=== PATIENT | female | born 1965 | race American Indian/Alaskan Native ===

== ENCOUNTER 2016-12-23 08:58 | Observation (INO) | payer OTHER ==
--- NOTE | 2016-12-21 13:30 | Anesthesia Consultation ---
Anesthesia Consult and Med Hx Date of service: 12/21/16 - Airway Anesthetic Teeth Evaluation: Poor (broken teeth back right) ROM Head & Neck: Adequate Mental/Hyoid Distance: Adequate Mallampati Class: Class II Intubation Access Assessment: Probably Good - Pulmonary Exam CTA: Yes (clear blbs) - Cardiac Exam Cardiac Exam: RRR - Pre-Operative Health Status ASA Pre-Surgery Classification: ASA2, ASA3 Proposed Anesthetic Plan: General - Cardiovascular System Hx Hypertension: Yes (since 20 yrs old) - Central Nervous System Hx Psychiatric Problems: No - Gastrointestinal Hx Gastroesophageal Reflux Disease: Yes - Hematic Hx Anemia: Yes - Other Systems Hx Alcohol Use: Yes (occas) Hx Cancer: No Hx Obesity: Yes
[2016-12-21 13:33] LABS: Basophils % (Auto) 1.2 % (0.0-1.8); Eosinophils % (Auto) 1.7 % (0.0-4.3); Hematocrit 37.2 % (30.3-42.9); Hemoglobin 12.2 gm/dl (10.1-14.3); Mean Corpuscular HGB Conc 33 % (30-34); Mean Corpuscular Volume 75 fl (79-97); Platelet Count 248 K/mm3 (140-440); Red Blood Count 4.94 M/mm3 (3.65-5.03); Red Cell Distribution Width 13.6 % (13.2-15.2); White Blood Count 6.4 K/mm3 (4.5-11.0)
[2016-12-21 13:45] LABS: Anion Gap 15 mmol/L; BUN/Creatinine Ratio 21.66; Blood Urea Nitrogen 13 mg/dL (7-17); Calcium 9.3 mg/dL (8.4-10.2); Carbon Dioxide 27 mmol/L (22-30); Chloride 104.1 mmol/L (98-107); Glucose 93 mg/dL (65-100); Potassium 3.8 mmol/L (3.6-5.0); Sodium 142 mmol/L (137-145)
[2016-12-21 14:05] LABS: Mean Corpuscular Hemoglobin 25 pg (28-32)
--- NOTE | 2016-12-22 09:20 | Admit Criteria Form ---
Admission Criteria Documentation: AMBULATORY SURGERY EXCEPTION CRITERIA Ambulatory Surgery Exception Criteria ( Place 'X' for any and all applicable criteria): Surgery or procedure performed on ambulatory basis may require inpatient stay for[A] ANY ONE of the following(1)(2)(3)(4)(5)(6)(7)(8)(9): [X] I. A preoperative situation, condition, or finding that warrants inpatient stay as indicated by ANY ONE of the following: [] a) Inpatient care needed because of severity of a disease or condition rather than the surgery (eg, severe cardiac or respiratory disease, severe infection) (15) (16 ) (17) (18) [] b) Emergent procedure (eg, angioplasty for acute ischemia)(19) [] c) Complex surgical approach or situation as indicated by ANY ONE of the following(3): [] i) Open approach needed instead of usual endoscopic, transcatheter, or other less invasive procedure [] ii) Difficult approach because of previous operation [] iii) Airway monitoring required after open neck procedures(20)(21) [] iv) Large mass requiring unusually extensive dissection [] v) Additional complicating feature requiring inpatient care (eg, drain management)(22(23): [X] d) Major surgery in a pt with high anesthetic risk as indicated by ANY ONE of the following (2)(3)(5)(7)(8): [X] i) ASA risk class III or higher (severe systemic disease impairing function) [D] [] ii) Advanced age (eg, older than 85 years)(14)(24) [] iii) Symptomatic heart failure(25) [] iv) Symptomatic asthma or COPD(8)(21) [] v) Morbid obesity with hemodynamic or respiratory problems(20)( 21)(26)(27) [] vi) Obstructive sleep apnea(20)(21) [] vii) Former premature infants who are younger than 60 weeks [] viii) High risk for severe postoperative abnormalities (eg, severe postoperative hypocalcemia after parathyroidectomy for severe hyperparathyroidism)(27)( 28) [] ix) Unstable angina(25) [] e) Drug-related risk requiring inpatient stay as indicated by ANY ONE of the following(5)(10)(14)(32)(33) [] i) Procedure requires discontinuing drugs or other therapy (eg , antiarrhythmic medication, antiseizure medication), which necessitates inpatient observation or treatment.(18)(31) [] ii) Major surgery and high risk drug use as indicated by ANY ONE of the following: [] 1) Active abuse of cocaine or similar drug [] 2) Monoamine oxidase inhibitor use [] 3) Other drug identified as posing risk [] f) Inadequate outpatient care situation as indicated by ANY ONE of the following(5)(10)(14)(32)(33) [] i) Patient lives remote from medical facility and procedure has urgent complication potential, and temporary nearby residence cannot be arranged [] ii) Patient will have postprocedure incapacitation and inadequate assistance at home, or alternative level of care cannot be arranged. [] iii) Patient will have long general anesthesia or procedure side effect resolution time, and competent person to stay with patient on first postoperative night at home or alternative level of care cannot be arranged. []iv) Other inadequate outpatient situation that cannot be handled by other means [] II. A perioperative event, condition, or finding that warrants inpatient stay as indicated by ANY ONE of the following (1)(2)(3): [] a) Inadequate physiologic recovery: cardiovascular, respiratory, or hemodynamic status not normal or near preoperative baseline(18) [] b) Hemodynamic instability [] c) Patient not alert with near normal or baseline mental status [] d) Temperature not normal or as expected and not appropriate for outpatient treatment of condition [] e) Ambulatory or appropriate activity level status not yet achieved post procedure [E](34)(35)(36) [] f) Operative site not appropriate (eg, unexpected or excessive drainage or bleeding) [] g) Postoperative effects not resolved or adequately managed (eg, significant pain or vomiting not appropriate for outpatient or next level of care)(10)(12) [] h) Complicating features requiring inpatient care as indicated by ANY ONE of the following(37): [] i) Severe complications of procedure (eg, bowel injury, airway compromise, vascular injury,severe hemorrhage) [] ii) Extensive (eg, dissection far beyond usual scope of procedure ) or prolonged (eg, 120 minutes beyond usual) surgery needed requiring inpatient postoperative care [] iii) Conversion to an open or complex procedure that requires inpatient care (eg, open vs laparoscopic cholecystectomy, abdominal vs vaginal hysterectomy)(38) [] iv) Comorbid condition or test result identified during or post procedure that requires inpatient care (7) [] v) Malignant hyperthermia(30) [] vi) Other complicating feature requiring inpatient care(22)(23) Inpatient stay may be needed until ALL of the following are present (1)(2)(3)(4) (5)(6)(10)(14)(33)(40): []a) Physiologic recovery: cardiovascular, respiratory, and hemodynamic status normal or near preoperative baseline []b) Hemodynamic stability []c) Patient alert, with near normal or baseline mental status []d) Temperature appropriate: patient afebrile or temperature appropriate for outpt treatment of condition []e) Activity level appropriate: ambulatory or appropriate activity level post procedure []f) Operative site appropriate as indicated by ALL of the following: []i) Site dry or with expected drainage []ii) Any blood noted is as expected for procedure. []g) Postoperative effects resolved or managed as indicated by ALL of the following: []i) Pain management appropriate for outpatient (or next level of) care(10) []ii) Minimal nausea and vomiting: if present, successfully treated with oral medication(12) []iii) Headache, dizziness, or drowsiness (if present) are mild. []h) Voiding status acceptable as indicated by ANY ONE of the following: []i) Voiding spontaneously []ii) No voiding but instructions given for follow-up in 6 to 8 hours []iii) Urinary catheter in place, and instructions given for follow-up []i) Complicating features requiring inpatient care manageable at a lower level of care(37) []j) Comorbid conditions manageable at a lower level of care(37) The original [employer] content created by [employer] has been revised. The portions of the content which have been revised are identified through the use of italic text or in bold, and [email or web address] has neither reviewed nor approved the modified material. All other unmodified content is copyright [employer]. Please see references footnoted in the original [employer] edition 2016 Admission Criteria Met: Yes
[~2016-12-23 08:58] MED LIST: ANCEF/STERILE WATER 2 GM/20 ML 2 GM/20 ML SYRINGE IV SCH; DILAUDID IV PRN; PEPCID PO NR; SUBLIMAZE IV NR; SUBLIMAZE IV PRN; TRANSDERM-SCOP TD NR; VERSED IV NR; ZOFRAN IV PRN
[2016-12-23] MEDS ORDERED: NEURONTIN PO NR (09:00)
[2016-12-23] MEDS ORDERED: PEPCID PO NR (09:00)
[2016-12-23] MEDS ORDERED: VERSED IV NR (09:00)
[2016-12-23] MEDS ORDERED: NACL 0.9% 1000 ML 1,000 ML IV SCH (09:00)
[2016-12-23] MEDS ORDERED: ZOFRAN IV PRN (09:02)
[2016-12-23] MEDS ORDERED: DILAUDID IV PRN (09:02)
[2016-12-23] MEDS ORDERED: XYLOCAINE 1% 20 mL ONE (09:44)
[2016-12-23] MEDS ORDERED: MARCAINE-EPI 0.5%-1:200,000 INFILTRATI ONE (09:45)
[2016-12-23] MEDS ORDERED: DECADRON ONE (09:45)
--- NOTE | 2016-12-23 09:48 | History and Physical Report ---
History of Present Illness Date of examination: 12/23/16 Date of admission: 12/23/2016 Chief complaint: Symptomatic uterine fibroids History of present illness: 51-year-old 002 with a history of symptomatic uterine fibroids. The patient had ultrasound performed that demonstrated evidence of an enlarged uterus approximately 15.7 cm in its longest dimension. It also demonstrated evidence of multiple uterine fibroids. The patient has reported pelvic pressure and pain and has elected to undergo definitive surgical management. Past History Past Medical History: hypertension, high cholesterol, other (uterine fibroids) Past Surgical History: section Social history: single - Obstetrical History : 2 Para: 2 Hx # Term Pregnancies: 2 Number of Pregnancies: 0 Spontaneous Abortions: 0 Induced : 0 Number of Living Children: 2 Medications and Allergies Allergies Allergy/AdvReac Type Severity Reaction Status Date / Time No Known Allergies Allergy Verified 12/21/16 13:42 Home Medications Medication Instructions Recorded Confirmed Last Taken Type Aspirin [Adult Low Dose Aspirin EC] 81 mg PO DAILY 12/18/16 12/21/16 12/21/16 History Ferrous Sulfate [Feosol] 325 mg PO BID 12/18/16 12/23/16 12/21/16 History Hydrochlorothiazide [HCTZ] 25 mg PO QDAY 12/18/16 12/23/16 12/21/16 History Metoprolol [Lopressor TAB] 50 mg PO BID 12/18/16 12/23/16 12/23/16 History Omeprazole [Omeprazole] 40 mg PO DAILY 12/18/16 12/23/16 12/21/16 History Pravastatin Sodium [Pravastatin] 40 mg PO QHS 12/18/16 12/23/16 12/21/16 History Active Meds: Active Medications Celecoxib (Celebrex) 200 mg PO PREOP NR Stop: 12/23/16 23:59 Last Admin: 12/23/16 09:26 Dose: 200 mg Famotidine (Pepcid) 20 mg PO PREOP NR Stop: 12/23/16 23:59 Last Admin: 12/23/16 09:26 Dose: 20 mg Fentanyl (Sublimaze) 50 mcg IV Q5MIN PRN PRN Reason: Pain , Severe (7-10) Stop: 12/24/16 13:32 Fentanyl (Sublimaze) 100 mcg IV ONCE NR Stop: 12/23/16 23:59 Last Admin: 12/23/16 09:28 Dose: 100 mcg Gabapentin (Neurontin) 300 mg PO PREOP NR Stop: 12/23/16 23:59 Last Admin: 12/23/16 09:26 Dose: 300 mg Hydromorphone HCl (Dilaudid) 0.5 mg IV Q10MIN PRN PRN Reason: Pain , Severe (7-10) Stop: 12/23/16 16:00 Cefazolin Sodium (Ancef/Sterile Water 2 Gm/20 Ml) 2 gm in 20 mls @ 80 mls/hr IV PREOP MARYBEL PRN Reason: Protocol Stop: 12/23/16 23:59 Sodium Chloride (Nacl 0.9% 1000 Ml) 1,000 mls @ 75 mls/hr IV DIRECT MARYBEL Last Admin: 12/23/16 09:31 Dose: 75 mls/hr Midazolam HCl (Versed) 2 mg IV PREOP NR Stop: 12/23/16 23:59 Last Admin: 12/23/16 09:26 Dose: 2 mg Ondansetron HCl (Zofran) 4 mg IV ONCE PRN PRN Reason: Nausea And Vomiting Stop: 12/23/16 16:00 Review of Systems Genitourinary: pelvic pain - Vital Signs Vital signs: Vital Signs Temp Pulse Resp BP 97.8 F 60 16 140/88 12/21/16 12:55 12/21/16 12:55 12/21/16 12:55 12/21/16 12:55 Temp Pulse Resp BP Pulse Ox 97.8 F 60 16 140/88 12/21/16 12:55 12/21/16 12:55 12/21/16 12:55 12/21/16 12:55 - Physical Exam Breasts: Positive: deferred Cardiovascular: Regular rate Lungs: Positive: Clear to auscultation Abdomen: Positive: normal appearance, soft Uterus: Positive: enlarged Results Result Diagrams: 12/21/16 13:05 12/21/16 13:05 All other labs normal. Assessment and Plan - Patient Problems (1) Uterine fibroid Current Visit: Yes Status: Acute Qualifiers: Uterine leiomyoma location: U Plan to address problem: Patient is scheduled to undergo robotic hysterectomy and bilateral salpingectomy (2) Pelvic pain Current Visit: Yes Status: Acute
[2016-12-23] MEDS ORDERED: NEOSPORIN GU IR ONE ×2 (09:59→13:38)
[2016-12-23] MEDS ORDERED: ROBINUL ONE (10:00)
[2016-12-23] MEDS ORDERED: NEOSTIGMINE ONE (10:00)
[2016-12-23] MEDS ORDERED: DIPRIVAN 10 MG/ML IV ONE (10:05)
[2016-12-23] MEDS ORDERED: ZEMURON IV ONE ×2 (10:05→12:39)
[2016-12-23] MEDS ORDERED: XYLOCAINE MPF 2% ONE (10:05)
[2016-12-23] MEDS ORDERED: DILAUDID ONE (10:06)
--- NOTE | 2016-12-23 10:23 | Anesthesia Day of Surgery ---
Anesthesia Day of Surgery - Day of Surgery Patient Examined: Yes Patient H&P Reviewed: Yes Patient is NPO: Yes Beta Blockers: Yes
[2016-12-23] MEDS ORDERED: MARCAINE 0.5% 30 ML INFILTRATI ONE (10:25)
[2016-12-23] MEDS ORDERED: ZOFRAN ONE (12:39)
[2016-12-23] MEDS ORDERED: ePHEDrine SULFATE ONE (12:55)
--- NOTE | 2016-12-23 13:20 | Operative Report ---
Operative Report Operative Report: Date of surgery: 12/23/2016 Preoperative diagnoses: Symptomatic uterine fibroids; abnormal uterine bleeding Postoperative diagnoses: Same as above Procedure: Robotic hysterectomy; bilateral salpingectomy Surgeon: Lizz Gerber M.D. Truck Sales Manager: Jaquan Dueñas Anesthesia: Gen. endotracheal anesthesia Estimated blood loss: 25 mL Pathology: Uterus, cervix, tubes; leiomyoma Indication: 51-year-old 1 with a history of symptomatic uterine fibroids who presents for a robotic hysterectomy. Procedure: The patient was taken to the operating room and given general endotracheal anesthesia without complication. She is prepped and draped in a normal sterile fashion. A bivalve speculum was placed in the patient's vagina and a single- tooth tenaculum placed on the anterior lip of the cervix. The uterus was sounded with the uterine sound. A [employer] uterine manipulator was placed in the bivalve speculum was then removed. Attention was then turned to the patient's abdomen where a millimeter supra umbilical skin incision was then made. A Veress needle was placed and peritoneal entry was verified water-filled syringe. Insufflation of the peritoneal cavity was performed with CO2 gas. The 12 mm trocar was then placed under direct visualization. An additional 8 mm trocar was placed on the patient's left and right lateral side just opposite of the supraumbilical trocar. An additional 5 mm right lateral trocar was then placed as the accessory port. The patient was then placed in steep Trendelenburg. The da Suzy robot was then engaged. A fenestrated forcep was placed in arm 2 and a vessel sealer was placed in arm 1. The surgeon then transferred to the surgical console. General survey of the patient's abdomen revealed an enlarged fibroid uterus with normal tubes and ovaries bilaterally. The uterus was consistent with approximately a 16 week . The mesosalpinx was then isolated on the right. The vessel sealer was used to coagulate the mesosalpinx which was then transected. The tube was transected from the ovary. The tubo-ovarian ligament was then coagulated and transected. The round ligament was then coagulated and transected also. The vesicouterine peritoneum was then entered from the patient's right side. The uterine vessels were then coagulated with the vessel sealer. The vessels were then transected . Attention was then turned to the patient's left side where the tubo-ovarian ligament and mesosalpinx were again isolated coagulated and transected. The vesical peritoneum was then entered from the left and joined in the midline. Peritoneum was reflected off of the lower uterine segment. Uterine vessels were then coagulated and then transected. The blood supply to the uterus was adequately contained, a posterior colpotomy was made. The V care ring was visualized. Posterior colpotomy was created with the monopolar scissors. The incision was continued circumferentially until anterior colpotomy was made. The cervix and uterus were amputated from the vaginal cuff. Secondary to the large size of the uterus the uterus had to be incised in order to facilitate delivery through the vagina. An incision was created through the myometrium with the monopolar scissors. The uterus was then removed along with the tubes bilaterally through the vagina and a warm laparotomy sponge was placed and maintain the pneumoperitoneum. The vaginal cuff was then closed in a running fashion with V lock suture. Irrigation of the pelvis was performed. Tisseel was applied to the incision. The supraumbilical 12 mm trocar site was closed with the Neno Hernandez device. The skin was then reapproximated with 4-0 Monocryl. The tissue was sent to pathology which included the cervix and uterus. The patient was then successfully extubated. She was then taken to the recovery room in stable condition. All sponge laps and needle counts were correct x2.
[2016-12-23] MEDS ORDERED: NARCAN 0.4 MG/1 ML IV PRN (13:26)
[2016-12-23] MEDS ORDERED: PERCOCET 5/325 PO PRN (13:27)
[2016-12-23] MEDS ORDERED: TYLENOL PO PRN (13:27)
[2016-12-23] MEDS ORDERED: MOTRIN PO PRN (13:27)
[2016-12-23] MEDS ORDERED: MILK OF MAGNESIA PO PRN (13:27)
[2016-12-23] MEDS ORDERED: MARCAINE 0.5% INFILTRATI ONE (13:37)
[2016-12-23] MEDS ORDERED: NACL 0.9% IR ONE ×2 (13:37→13:38)
[2016-12-23] MEDS ORDERED: MORPHINE PCA 30MG/30ML IV SCH (14:00)
--- NOTE | 2016-12-23 14:55 | Post Anesthesia Evaluation ---
- Post Anesthesia Evaluation Patient Participated: Yes Airway Patent: Yes Stable Respiratory Function: Yes Nausea/Vomiting: No Temp > 96.8F: Yes Pain Manageable: Yes Adequeate Hydration: Yes Anesthesia Complications: No
[2016-12-23] MEDS: TORADOL IV SCH ×2 (15:07→23:37)
[2016-12-23] MEDS: D5LR 1,000 ML IV SCH ×2 (15:12→21:54)
[2016-12-24] MEDS: TORADOL IV SCH (05:22)
[2016-12-24] MEDS: D5LR 1,000 ML IV SCH (05:28)
[2016-12-24 06:56] LABS: Hemoglobin 11.1 gm/dl (10.1-14.3)
--- NOTE | 2016-12-24 08:53 | Progress Note ---
Assessment and Plan - Patient Problems (1) Uterine fibroid Current Visit: Yes Status: Acute Qualifiers: Uterine leiomyoma location: U Plan to address problem: Patient doing well Discharge home once meets discharge criteria (2) Pelvic pain Current Visit: Yes Status: Acute Subjective - Subjective Date of service: 12/24/16 Interval history: The patient tolerated her regular diet this a.m. Her Andrade has just recently been discontinued however she has not voided as of yet. She reports that her pain is manageable. Patient experienced elevated blood pressures postoperatively that was appropriately treated with by mouth antihypertensive Patient reports: appetite normal, pain well controlled Objective - Vital Signs Latest vital signs: Vital Signs Temp Pulse Pulse Resp BP BP Pulse Ox 12/24/16 05:19 20 12/24/16 04:35 98.4 F 62 20 139/66 12/24/16 04:12 20 100 12/24/16 01:51 18 12/24/16 00:15 98.1 F 80 18 117/90 12/24/16 00:02 20 12/23/16 21:40 18 12/23/16 20:19 18 100 12/23/16 19:50 98.4 F 80 18 154/76 12/23/16 15:35 97.6 F 64 18 147/67 12/23/16 15:15 63 12 132/60 100 12/23/16 15:07 13 12/23/16 15:00 97.7 F 61 12 138/52 100 12/23/16 14:45 64 12 138/53 100 12/23/16 14:30 68 14 130/54 100 12/23/16 14:20 57 L 14 125/64 100 12/23/16 14:15 57 L 14 123/62 100 12/23/16 14:10 57 L 14 125/64 100 12/23/16 14:05 97.8 F 55 L 13 128/61 100 12/23/16 10:48 72 18 139/69 100 12/23/16 10:43 74 18 141/72 100 12/23/16 10:38 73 18 137/71 100 12/23/16 10:26 75 20 144/75 99 12/23/16 10:18 76 17 160/79 100 12/23/16 10:07 71 18 155/78 100 12/23/16 10:02 99.1 F 64 18 151/82 100 12/23/16 09:57 61 12 144/73 100 12/23/16 09:52 68 13 144/76 100 12/23/16 09:47 62 21 144/80 100 12/23/16 09:33 99.1 F 59 L 20 153/63 100 Intake and Output 12/23/16 12/24/16 12/24/16 22:59 06:59 14:59 Intake Total 1720 1240 Output Total 990 600 Balance 730 640 Intake: IV 1000 1000 D5lr 1,000 ml @ 125 mls/ 1000 1000 hr IV DIRECT [facility] Rx#: [id number] Oral 480 240 Intake, Free Water 240 Output: Urine 990 600 2-way Urethral 265 Indwelling Catheter 450 600 Other: Total, Intake Amount 240 120 Total, Output Amount 450 300 Voiding Method Indwelling Catheter Indwelling Catheter - Exam Abdomen: Present: normal appearance, soft Incision: Present: normal
--- NOTE | 2016-12-24 08:55 | Discharge Summary ---
Providers - Providers Date of Admission: 12/23/16 13:27 Date of discharge: 12/24/16 Attending physician: NICHOLE MENON Primary care physician: NICOLE PENG Hospitalization Reason for admission: other (symptomatic uterine fibroid; dysfunctional uterine bleeding) Procedure: other (robotic hysterectomy and bilateral salpingectomy) Incision: normal, dry Discharge diagnosis: other (symptomatic uterine fibroids; dysfunctional uterine bleeding.) Hospital course: The patient was admitted the day of surgery underwent a robotic hysterectomy bilateral salpingectomy. Please see operative note for details of surgery. Postoperative course is limited eventful for elevated blood pressures that were controlled with antihypertensives. Condition at discharge: Good Disposition: DISCHARGED TO HOME OR SELFCARE - Discharge Diagnoses (1) Uterine fibroid Status: Acute Qualifiers: Uterine leiomyoma location: U (2) Pelvic pain Status: Acute Plan - Discharge Medications Prescriptions: Docusate Sodium [Colace] 100 mg PO BID PRN #60 capsule PRN Reason: Constipation Ibuprofen [Motrin] 800 mg PO Q8HR PRN #60 tablet PRN Reason: Pain Oxycodone HCl/Acetaminophen [Percocet 7.5/325 mg] 1 each PO Q6HR PRN #45 tablet PRN Reason: Pain - Provider Discharge Summary Activity: no sex for 6 weeks, no heavy lifting 4 weeks, no strenuous exercise Diet: routine Instructions: routine Additional instructions: [] Smoking cessation referral if applicable(refer to patient education folder for contact #) [] Refer to [facility] Booklet Call your doctor immediately for: * Fever > 100.5 * Heavy vaginal bleeding ( >1 pad per hour) * Severe persistent headache * Shortness of breath * Reddened, hot, painful area to leg or breast * Drainage or odor from incision. * Keep incision clean and dry at all times and follow doctor's instructions regarding bathing/showering Follow-up with Dr. Menon 4 weeks - Follow up plan
--- NOTE | 2016-12-24 09:02 | Progress Note ---
Subjective Date of service: 12/24/16 Interval history: 1st POD after total robotic hysterectomy Patient is in the bed, comfortable. Pain is well controlled with pain meds. Ambulated well. No nausea or vomiting. No anesthesia complication Objective - Constitutional Vitals: Vital Signs - 12hr 12/23/16 12/24/16 12/24/16 21:40 00:02 00:15 Temperature 98.1 F Pulse Rate [ 80 Right Radial] Respiratory 18 20 18 Rate Blood Pressure 117/90 [Right Arm] O2 Sat by Pulse Oximetry 12/24/16 12/24/16 12/24/16 01:51 04:12 04:35 Temperature 98.4 F Pulse Rate [ 62 Right Radial] Respiratory 18 20 20 Rate Blood Pressure 139/66 [Right Arm] O2 Sat by Pulse 100 Oximetry 12/24/16 05:19 Temperature Pulse Rate [ Right Radial] Respiratory 20 Rate Blood Pressure [Right Arm] O2 Sat by Pulse Oximetry - Labs CBC & Chem 7: 12/24/16 06:13 12/21/16 13:05
[2016-12-24] MEDS ORDERED: LOPRESSOR PO SCH (10:00)
[2016-12-24] MEDS ORDERED: HCTZ PO SCH (10:00)
[2016-12-24 16:47] VITALS: BP 145/72
== END 2016-12-24 16:40 | disposition home or self-care (01) ==
LOC: OR 08:58 → OB 13:27
PROVIDERS: ADMIT Obstetrics & Gynecology; ATTEND Obstetrics & Gynecology
DX: D25.9 Leiomyoma of uterus, unspecified (principal); N93.8 Other specified abnormal uterine and vaginal bleeding; I10 Essential (primary) hypertension; E78.00 Pure hypercholesterolemia, unspecified
CPT/HCPCS: 36415; 58571; 64450; 80048; 84703; 85014; 85018; 85025; 86850; 86900; 86901; 88307; 96374; 96375; 96376; A4217; C9250; G0378; J0690; J1100; J1170; J1885; J2250; J2270; J2405; J2704; J2710; J3010; J7030; J7121; S2900